=== PATIENT | male | born 1975 | race Caucasian/White ===

== ENCOUNTER 2020-10-11 09:37 | Emergency (ER) | payer SELFPAY ==
[~2020-10-11] VITALS: Ht 185.4 cm; Wt 65.8 kg
--- NOTE | 2020-10-11 09:49 | NUR ---
PT HERE TO HAVE HIS BUSPAR REFILLED AND ASK FOR SOMETHING TO HELP SLEEP. TO ROOM WITH STEADY GAIT. DENIES SI/HI. POSTIONED TO COMFORT. ATTACHED TO MONITORS. VSS. DIOR.
--- NOTE | 2020-10-11 10:37 | NUR ---
DR. FULLER TO BEDSIDE FOR EVALUATION. NADN. RODRIGUEZ.
[2020-10-11 10:48] VITALS: BP 99/77
--- NOTE | 2020-10-11 10:49 | NUR ---
Patient given discharge instructions and they have confirmed that they understand the instructions. Patient ambulatory with steady gait.
== END 2020-10-11 10:51 | disposition home or self-care (01) ==
LOC: ED 10:11
DX: F41.9 Anxiety disorder, unspecified (principal); Z76.0 Encounter for issue of repeat prescription; I10 Essential (primary) hypertension
CPT/HCPCS: 99281